=== PATIENT | female | born 1990 | race American Indian/Alaskan Native ===

== ENCOUNTER 2021-06-01 08:00 | Outpatient (CLI) | payer OTHER | END 2021-06-01 08:30 | disposition home or self-care (01) | LOC: PPH VACUNA 08:00 | PROVIDERS: ATTEND Emergency Medicine Pediatric Emergency Medicine | DX: Z23 Encounter for immunization (principal) ==

== ENCOUNTER 2023-07-08 07:00 | Inpatient (IN) | payer OTHER ==
[~2023-07-08] VITALS: Ht 167.6 cm; Wt 3.2 kg
[2023-07-08 09:54] LABS: HEMATOCRIT 32.2 % (36.0-45.00); MEAN CELL VOLUME 79.6 fL (80.00-100.00); PLATELET COUNT 241 K/uL (150-450); RED BLOOD COUNT 4.05 M/uL (4.00-6.00)
[2023-07-08 10:00] LABS: URINE APPEARANCE Clear; URINE BILIRRUBIN Negative (NEGATIVE); URINE BLOOD Negative; URINE COLOR Yellow; URINE GLUCOSE Negative (NEGATIVE); URINE LEUKOCYTE Negative; URINE NITRATE Negative; URINE PROTEIN Negative (NEGATIVE); URINE UROBILINOGEN 0.2 E.U./dl
[2023-07-08 10:02] LABS: HEMOGLOBIN 10.6 g/dL (12.0-15.00); MEAN CORPUSCULAR HEMOGLOBIN 26.1 pg (27.00-32.0)
[2023-07-08 10:04] LABS: URINE BACTERIA 1352.9 uL (0.0-1933); URINE EPITHELIAL CELLS 17.3 uL (0.0-38.8); URINE WBC 20.8 uL (0.0-23.2)
[2023-07-08 10:20] LABS: URINE RBC 1.5 uL (0.0-20.8)
[2023-07-08 10:22] LABS: INR < 0.93; PARTIAL THROMBOPLASTIN TIME 25.6 SECONDS (22.0-34.0)
[2023-07-08 10:46] LABS: PROTHROMBIN TIME 9.7 SECONDS (9.0-11.5)
[2023-07-09] MEDS ORDERED: OXYTOCIN 10 UNITS/ML VIAL ONE (13:25)
[2023-07-09] MEDS ORDERED: CEFAZOLIN SODIUM 1,000 MG VIAL ONE (13:26)
[2023-07-09] MEDS ORDERED: ERYTHROMYCIN BASE 1 GM TUBE OP ONE ×2 (13:26→14:45)
[2023-07-09] MEDS ORDERED: CEFAZOLIN SODIUM 1,000 MG VIAL IV ONE (14:45)
[2023-07-09] MEDS ORDERED: OXYTOCIN 20 UNITS/1000ML RL PIGGYBAG IV ONE (14:45)
[2023-07-09] MEDS ORDERED: KETOROLAC TROMETHAMINE 60 MG VIAL IM STA (15:37)
[2023-07-09] MEDS ORDERED: MEPERIDINE HCL/PF 50 MG/ML VIAL IM PRN (15:45)
[2023-07-09] MEDS ORDERED: PROMETHAZINE HCL 25 MG/ML AMPUL IM PRN (15:45)
[2023-07-09] MEDS ORDERED: RINGERS SOLUTION,LACTATED 1,000 ML IV SCH (15:45)
[2023-07-09] MEDS ORDERED: KETOROLAC TROMETHAMINE 60 MG VIAL IM ONE (17:06)
[2023-07-09 19:58] LABS: HEMATOCRIT 30.1 % (36.0-45.00); MEAN CELL VOLUME 78.7 fL (80.00-100.00); MEAN CORPUSCULAR HGB CONC 33.1 g/dl (32.0-36.0); PLATELET COUNT 218 K/uL (150-450); RED BLOOD COUNT 3.82 M/uL (4.00-6.00); RED CELL DISTRIBUTION WIDTH 17.2 % (11.5-14.5)
[2023-07-10] MEDS ORDERED: OxyCODONE HCL/APAP UD (PERCOCET) PO PRN
[2023-07-10] MEDS ORDERED: DIPHENHYDRAMINE HCL 50 MG CAPSULE PO ONE (10:30)
[2023-07-10] MEDS ORDERED: IBUprofen 600 MG TABLET PO PRN (10:30)
[2023-07-10] MEDS ORDERED: DIPHENHYDRAMINE HCL 25 MG CAPSULE PO ONE (11:15)
== END 2023-07-11 11:39 | disposition home or self-care (01) | DRG 785 ==
LOC: SURG 07-09 07:00 → OB/GYN 07-09 10:00 → O/R 07-09 10:00 → OB/GYN 07-09 16:57 → SURG 07-09 19:30 → OB/GYN 07-11 11:39
PROVIDERS: ADMIT Obstetrics & Gynecology; ATTEND Obstetrics & Gynecology
PROC: 0UB70ZZ Excision of Bilateral Fallopian Tubes, Open Approach (ICD-10-PCS; 2023-07-09)
PROC: 4A1HXCZ Monitoring of Products of Conception, Cardiac Rate, External Approach (ICD-10-PCS; 2023-07-09)
PROC: 10D00Z1 Extraction of Products of Conception, Low, Open Approach (ICD-10-PCS; principal; 2023-07-09 19:30)
DX: O34.211 Maternal care for low transverse scar from previous cesarean delivery (principal); Z3A.39 39 weeks gestation of pregnancy; Z37.0 Single live birth; Z30.2 Encounter for sterilization; Z20.822 Contact with and (suspected) exposure to COVID-19